=== PATIENT | female | born 1950 | race Caucasian/White ===

== ENCOUNTER 2019-10-30 07:56 | Day surgery (SDC) | payer MEDICARE ==
[2019-10-30] MEDS ORDERED: PROPOFOL 10 MG/ML VIAL IV ONE (07:57)
[2019-10-30] MEDS ORDERED: LIDOCAINE 2% MDV (20MG/ML) 20ML VIAL IV ONE (07:57)
--- NOTE | 2019-10-30 17:10 | Operative Note ---
OPERATION: COLONOSCOPY to the cecum with cold snare polypectomy x2. INDICATION: History of colon polyps. The patient returns at this time for surveillance. We did not have record of her last examination. The patient thought it was 3-5 years ago. ANESTHESIA: Intravenous sedation was administered by the department of anesthesiology and included Diprivan titrated to effect. PROCEDURE: Following informed consent from this alert individual including a discussion of the risks and benefits of the procedure and an opportunity for the patient to ask questions, the patient was in the left lateral decubitus position. A digital rectal examination was performed. No abnormalities were noted. Following this, the Olympus [id number] video colonoscope was inserted into the rectum without resistance. The rectal mucosa had a normal appearance with normal folds and distensibility. The colonoscope was advanced up through the bowel to the level of the cecum with some abdominal pressure support by the nursing staff. The cecum was defined by noting the appendiceal orifice and cecal base. From the base of the cecum, the colonoscope was slowly withdrawn. Overall, the preparation was good. In the cecum, at the level of the cecum-ascending colon junction, there was a sessile 6 mm polyp noted, which was removed with cold snare polypectomy and suctioned through the colonoscope into a collection trap. The colonoscope was then further withdrawn. No additional changes were noted until the descending colon was reached where a 4 mm polyp was noted and removed with cold snare polypectomy and suctioned into a trap. No other changes were appreciated throughout the remainder of the bowel. Retroflexion in the rectum was endoscopically unremarkable. The endoscope was straightened and withdrawn. The patient tolerated the procedure well and was returned to the recovery area in stable condition. IMPRESSION: 1. A 6 mm cecal polyp removed with cold snare polypectomy. 2. A 4 mm descending colon polyp removed with cold snare polypectomy. RECOMMENDATIONS: Further recommendations will be forthcoming pending results of pathology obtained today. Followup will be with Lory Ba. As always, thank you for allowing me to participate in the care of your patient. MARIBEL
== END 2019-10-30 10:35 | disposition home or self-care (01) ==
LOC: HOP 07:56
PROVIDERS: ATTEND Internal Medicine Gastroenterology
DX: Z09 Encounter for follow-up examination after completed treatment for conditions other than malignant neoplasm (principal); Z86.010 Personal history of colon polyps; I10 Essential (primary) hypertension; E78.00 Pure hypercholesterolemia, unspecified